=== PATIENT | male | born 1930 | race Caucasian/White ===

== ENCOUNTER 2016-07-19 08:43 | Outpatient (CLI) | payer OTHER ==
[2016-04-23 14:05] VITALS: BMI 17.6
[~2016-07-19 08:43] MED LIST: CARB1TAB10 PO; CLOP75TA2 PO; EZET10TA PO; FENO145T PO; FENO48TA2 PO; HCTZ PO; HYDR12.55 PO; LISI-219 PO; LISI-600 PO; LISI40TA4 PO; METO50TA7 PO; ONDA4TAB5 PO; POTA99TA14 PO; PRO40 PO; ROSU20TA PO; ROSU40TA PO; TOPXL100 PO; TRAM50TA92 PO
== END 2016-07-19 18:45 | disposition home or self-care (01) ==
LOC: SUS 08:43
PROVIDERS: ATTEND Internal Medicine
DX: N18.4 Chronic kidney disease, stage 4 (severe) (principal); N28.1 Cyst of kidney, acquired
CPT/HCPCS: 76770

== ENCOUNTER 2016-07-20 12:48 | Emergency (ER) | payer OTHER ==
[2016-04-23 14:05] VITALS: Ht 177.8 cm; Wt 54.4 kg
[~2016-07-20] VITALS: Ht 177.8 cm; Wt 54.4 kg
[2016-07-20 12:54] VITALS: BP 121/56; PULSE 60; RESP 18; TEMP 97.8; O2SAT 100
--- NOTE | 2016-07-20 12:54 | NUR ---
Pt placed to ER bed 07. Report given to ANGELITA Perez.
--- NOTE | 2016-07-20 12:54 | NUR ---
Annie martins in EDM - 07/20/16 at 1301 by CARLOS Pt placed to [facility] . Report given to ANGELITA Vargas.
--- NOTE | 2016-07-20 12:56 | NUR ---
ER at bedside examining patient.
--- NOTE | 2016-07-20 13:00 | NUR ---
Pt [id number] c/o L Elbow,hand and head pain s/p mech fall c/o syncope. Pt ambulates /slow steady gait. Wounds dressed prior to evaluation.
[2016-07-20] MEDS ORDERED: DIPH-TET-PERTUS Vaccine 0.5 ML VIAL (ADACEL) I.M. ONE (13:30)
--- NOTE | 2016-07-20 13:50 | NUR ---
Pt receiveing wound care.
--- NOTE | 2016-07-20 15:00 | NUR ---
Wound care completed. Pt tolerated well.Rad dept at bedside for XRAY
--- NOTE | 2016-07-20 16:00 | NUR ---
Per , pt decline Head CT for r/o bleed.Risk and benefits explained at bedside. Pt to be D/C'd
[2016-07-20 17:00] VITALS: BP 120/58; PULSE 65; RESP 18; TEMP 97.8; O2SAT 100
--- NOTE | 2016-07-20 17:00 | NUR ---
Patient given written and verbal discharge instructions and verbalizes understanding. ER MD discussed with patient the results and treatment provided. Given copies of tests performed in ER. Patient in stable condition. ID arm band removed. Rx of mupirocin given. Patient educated on pain management and to follow up with PMD. Pain Scale 2. Opportunity for questions provided and answered.
== END 2016-07-20 17:00 | disposition home or self-care (01) ==
LOC: SED 12:48
DX: S41.112A Laceration without foreign body of left upper arm, initial encounter (principal); S60.512A Abrasion of left hand, initial encounter; S50.312A Abrasion of left elbow, initial encounter; I10 Essential (primary) hypertension; M54.5 Low back pain; E78.00 Pure hypercholesterolemia, unspecified; Z85.46 Personal history of malignant neoplasm of prostate; Z88.5 Allergy status to narcotic agent; Z85.828 Personal history of other malignant neoplasm of skin; Z95.0 Presence of cardiac pacemaker; Z90.49 Acquired absence of other specified parts of digestive tract; W18.30XA Fall on same level, unspecified, initial encounter; Y93.89 Activity, other specified; Y99.8 Other external cause status; Y92.000 Kitchen of unspecified non-institutional (private) residence as the place of occurrence of the external cause
CPT/HCPCS: 72100-TC; 90715; 99284

== ENCOUNTER 2016-09-26 13:15 | Emergency (ER) | payer OTHER ==
[~2016-09-26] VITALS: Ht 177.8 cm; Wt 54.4 kg
[~2016-09-26 13:15] MED LIST changes: -EZET10TA PO; -FENO145T PO; -FENO48TA2 PO; -HCTZ PO; -HYDR12.55 PO; -LISI-600 PO; -LISI40TA4 PO; -ONDA4TAB5 PO; -POTA99TA14 PO; -ROSU40TA PO; -TOPXL100 PO; -TRAM50TA92 PO
[2016-09-26] MEDS ORDERED: BACITRACIN 1 GM OINT TP ONE (14:15)
[2016-09-26 14:27] VITALS: BP_SYST 152
[2016-09-26 14:35] LABS: CALCIUM 9.6 mg/dL (8.4-11.0); CHLORIDE 112 mmol/L (98-107); CREATININE 2.65 mg/dL (0.55-1.30); GLUCOSE 129 mg/dL (70-99); POTASSIUM 4.1 mmol/L (3.5-5.1); SODIUM SERUM 143 mmol/L (136-145); UREA NITROGEN, BLOOD 30 mg/dL (8-21)
[2016-09-26 14:41] LABS: ANION GAP < 3 (5-15)
[2016-09-26 14:42] LABS: INR 1.1 (0.80-1.20); PROTHROMBIN TIME 11.9 SECS (9.5-12.5)
[2016-09-26 14:43] LABS: EOSINOPHILS # (AUTO) 0.2 K/uL (0.0-0.4); MEAN CORPUSCULAR HEMOGLOBIN 30 pg (27-31); MONOCYTES # (AUTO) 0.6 K/uL (0.0-1.0); NEUTROPHILS # (AUTO) 4.2 K/uL (1.8-7.7); RED CELL DISTRIBUTION WIDTH 13.4 % (9.0-15.0)
[2016-09-26 14:47] LABS: BASOPHILS % (AUTO) 0.8 % (0.0-2.0); EOSINOPHILS % (AUTO) 3.3 % (0.0-4.0); HEMATOCRIT 35.9 % (36-54); HEMOGLOBIN 11.7 g/dL (14.0-18.0); LYMPHOCYTES # (AUTO) 0.6 K/uL (1.0-5.5); LYMPHOCYTES % (AUTO) 11.6 % (20.5-51.5); MEAN CORPUSCULAR HGB CONC 33 % (32-36); MEAN CORPUSCULAR VOLUME 92 fL (79.0-98.0); MONOCYTES % (AUTO) 10.5 % (1.7-9.3); NEUTROPHILS % (AUTO) 73.8 % (40.0-70.0); PLATELET COUNT (AUTO) 112 K/uL (130-430); RED BLOOD CELL COUNT(AUTO) 3.89 MIL/uL (4.2-6.2); WHITE BLOOD COUNT (AUTO) 5.6 K/uL (4.8-10.8)
[2016-09-26 14:49] LABS: ALANINE AMINOTRANSFERASE 37 U/L (12-78); ALBUMIN 4.2 g/dL (3.4-4.8); ASPARTATE AMINOTRANSFERASE 23 U/L (10-37); TOTAL BILIRUBIN 0.4 mg/dL (0.0-1.0); TOTAL PROTEIN, SERUM 8.1 g/dL (6.4-8.3)
[2016-09-26 14:50] LABS: CREATINE KINASE, TOTAL 67 U/L (39-308)
[2016-09-26 16:45] VITALS: BP_SYST 156
[2016-09-27] MEDS ORDERED: METO-308 PO (21:33)
[2016-09-27] MEDS ORDERED: ASPI-1063 PO (21:35)
[2016-09-27] MEDS ORDERED: ROSU10TA PO (21:35)
[2016-09-27] MEDS ORDERED: AMAN100C16 PO (21:36)
[2016-09-27] MEDS ORDERED: DOXY-168 PO (21:37)
[2016-09-27] MEDS ORDERED: SUCR1TAB78 PO (21:38)
== END 2016-09-26 16:45 | disposition home or self-care (01) ==
LOC: SED 13:15
DX: S51.012A Laceration without foreign body of left elbow, initial encounter (principal); S60.211A Contusion of right wrist, initial encounter; E78.00 Pure hypercholesterolemia, unspecified; Z86.79 Personal history of other diseases of the circulatory system; Z96.89 Presence of other specified functional implants; Z88.5 Allergy status to narcotic agent; W19.XXXA Unspecified fall, initial encounter; Y93.89 Activity, other specified; Y92.89 Other specified places as the place of occurrence of the external cause; Y99.8 Other external cause status; I12.9 Hypertensive chronic kidney disease with stage 1 through stage 4 chronic kidney disease, or unspecified chronic kidney disease
CPT/HCPCS: 36415; 71010; 80053; 82550-TC; 83880; 84484; 85025; 85610-TC; 85730-TC; 93005; 99285

== ENCOUNTER 2016-09-27 18:14 | Inpatient (IN) | payer OTHER ==
[~2016-09-27] VITALS: Ht 177.8 cm; Wt 54.4 kg
[2016-09-27 18:14] VITALS: BP 120/83; PULSE 98; RESP 19; TEMP 98.2; O2SAT 99
[~2016-09-27 18:14] MED LIST changes: +EZET10TA PO; +FENO145T PO; +FENO48TA2 PO; +HCTZ PO; +HYDR12.55 PO; +LISI-600 PO; +LISI40TA4 PO; +ONDA4TAB5 PO; +POTA99TA14 PO; +ROSU40TA PO; +TOPXL100 PO; +TRAM50TA92 PO
[2016-09-27] MEDS ORDERED: HYDROmorphone 1 MG INJ. 1 MG/ML AMPUL IVP ONE (19:00)
[2016-09-27] MEDS ORDERED: ONDANSETRON HCL 4 MG/2 ML VIAL IVP ONE (19:00)
[2016-09-27] MEDS ORDERED: DIPHENHYDRAMINE INJ 50 MG/ML VIAL IVP ONE (19:00)
[2016-09-27 19:35] LABS: ANION GAP 5 (5-15); CALCIUM 9.2 mg/dL (8.4-11.0); CHLORIDE 110 mmol/L (98-107); CREATININE 2.52 mg/dL (0.55-1.30); GLUCOSE 191 mg/dL (70-99); POTASSIUM 3.9 mmol/L (3.5-5.1); SODIUM SERUM 143 mmol/L (136-145); UREA NITROGEN, BLOOD 30 mg/dL (8-21)
[2016-09-27 19:37] LABS: INR 1.1 (0.80-1.20); PROTHROMBIN TIME 12.3 SECS (9.5-12.5)
[2016-09-27 19:39] LABS: ALANINE AMINOTRANSFERASE 28 U/L (12-78); ALBUMIN 3.7 g/dL (3.4-4.8); ASPARTATE AMINOTRANSFERASE 23 U/L (10-37); BASOPHILS % (AUTO) 0.4 % (0.0-2.0); EOSINOPHILS # (AUTO) 0.2 K/uL (0.0-0.4); EOSINOPHILS % (AUTO) 2.4 % (0.0-4.0); HEMATOCRIT 31.6 % (36-54); HEMOGLOBIN 10.5 g/dL (14.0-18.0); LIPASE 228 U/L (73-393); LYMPHOCYTES # (AUTO) 0.6 K/uL (1.0-5.5); LYMPHOCYTES % (AUTO) 9.4 % (20.5-51.5); MEAN CORPUSCULAR HEMOGLOBIN 30 pg (27-31); MEAN CORPUSCULAR HGB CONC 33 % (32-36); MEAN CORPUSCULAR VOLUME 92 fL (79.0-98.0); MONOCYTES # (AUTO) 0.4 K/uL (0.0-1.0); MONOCYTES % (AUTO) 6.8 % (1.7-9.3); NEUTROPHILS # (AUTO) 5.2 K/uL (1.8-7.7); PLATELET COUNT (AUTO) 100 K/uL (130-430); RED BLOOD CELL COUNT(AUTO) 3.46 MIL/uL (4.2-6.2); RED CELL DISTRIBUTION WIDTH 13.4 % (9.0-15.0); TOTAL BILIRUBIN 0.6 mg/dL (0.0-1.0); TOTAL PROTEIN, SERUM 6.6 g/dL (6.4-8.3); WHITE BLOOD COUNT (AUTO) 6.4 K/uL (4.8-10.8)
[2016-09-27 20:46] LABS: BLOOD, URINE 2+ (NEGATIVE); COLOR,URINE YELLOW (YELLOW); GLUCOSE,URINE NEGATIVE (NEGATIVE); KETONES,URINE TRACE (NEGATIVE); LEUKOCYTE ESTERASE ,URINE NEGATIVE (NEGATIVE); NITRITE, URINE NEGATIVE (NEGATIVE); PROTEIN URINE 2+ (NEGATIVE); UROBILINOGEN,URINE 0.2 (0.2-1.0)
[2016-09-27 20:54] LABS: BILIRUBIN,URINE NEGATIVE (NEGATIVE); CLARITY/URINE HAZY (CLEAR)
[2016-09-27 20:55] LABS: BACTERIA,URINE FEW /HPF (None Seen); MUCUS,URINE None Seen /LPF (None Seen); RBC,URINE 0-3 /HPF (0-3); URINE AMORPHOUS URATE 1+ /HPF (None Seen); WBC,URINE 0-3 /HPF (0-3)
[2016-09-27] MEDS ORDERED: METO-308 PO (21:33)
[2016-09-27] MEDS ORDERED: ASPI-1063 PO (21:35)
[2016-09-27] MEDS ORDERED: ROSU10TA PO (21:35)
[2016-09-27] MEDS ORDERED: AMAN100C16 PO (21:36)
[2016-09-27] MEDS ORDERED: DOXY-168 PO (21:37)
[2016-09-27] MEDS ORDERED: SUCR1TAB78 PO (21:38)
[2016-09-27] MEDS ORDERED: PIPERACILLIN/TAZO 3.375 GM in NS 50 ML IV ONE (21:45)
[2016-09-27] MEDS ORDERED: KETOROLAC TROMETHAMINE 30 MG VIAL IVP ONE (21:45)
[2016-09-27] MEDS ORDERED: PIPERACILLIN/TAZOBACTAM 3.375 GM/VIAL (ZOSYN) IV ONE (22:28)
[2016-09-27] MEDS: POTASSIUM CHLORIDE 10 MEQ in 0.45% NACL 1,000 ML IV SCH (23:34)
[2016-09-27] MEDS ORDERED: PROCHLORPERAZINE EDISYLATE 10 MG/2 ML VIAL IVP PRN (23:45)
[2016-09-27] MEDS ORDERED: ACETAMINOPHEN 325 MG TABLET PO PRN (23:45)
[2016-09-28] VITALS (9 sets, daily range): BP systolic 126–136; BP diastolic 54–68; PULSE 60–80; RESP 16–19; TEMP 97.5–99.1; O2SAT 92–99; Ht 177.8 cm; Wt 54.4 kg
[2016-09-28] MEDS: ALBUTEROL SULFATE 0.083% 2.5 MG/3 ML VIAL.NEB INH SCH ×4 (01:14→20:07)
[2016-09-28] MEDS ORDERED: KCL 20 mEq in 100 mL (PREMIX) 100 ML IV ONE (01:25)
[2016-09-28] MEDS: POTASSIUM CHLORIDE 10 MEQ in 0.45% NACL 1,000 ML IV SCH ×2 (02:04→21:10)
[2016-09-28] MEDS ORDERED: PIPERACILLIN/TAZOBACTAM 2.25 GM VIAL IV ONE (02:11)
[2016-09-28] MEDS: PIPERACILLIN/TAZOBACTAM 2.25 GM in NS 50 ML IV SCH ×3 (06:24→21:11)
[2016-09-28] MEDS ORDERED: ROSUVASTATIN CALCIUM 5 MG/TAB (CRESTOR) PO SCH (09:00)
[2016-09-28] MEDS ORDERED: METOPROLOL SUCCINATE 100 MG PO SCH (09:00)
[2016-09-28] MEDS: AMANTADINE HCL 100 MG CAP PO SCH ×2 (09:03→21:10)
[2016-09-28] MEDS: LACTOBACILLUS RHAMNOSUS GG 1 CAP CAPSULE PO SCH ×2 (09:03→21:10)
[2016-09-28] MEDS: ATORVASTATIN 20 MG TABLET PO SCH (09:03)
[2016-09-28] MEDS: METOPROLOL SUCCINATE 50 MG TAB.SR.24H (TOPROL XL) PO SCH (09:03)
[2016-09-28] MEDS: CLOPIDOGREL BISULFATE 75 MG TABLET PO SCH (09:03)
[2016-09-28] MEDS: ASPIRIN 81 MG TABLET(ECOTRIN) PO SCH (09:03)
[2016-09-28] MEDS: SUCRALFATE 1 GM TABLET PO SCH ×3 (09:03→21:10)
[2016-09-28] MEDS: traMADol HCL HCL 50 MG TABLET (ULTRAM) PO PRN (21:11)
[2016-09-29] MEDS: ALBUTEROL SULFATE 0.083% 2.5 MG/3 ML VIAL.NEB INH SCH ×4 (01:20→19:35)
[2016-09-29 03:58] VITALS: BP 142/65; PULSE 70; RESP 19; TEMP 98.2; O2SAT 92
[2016-09-29] MEDS: PIPERACILLIN/TAZOBACTAM 2.25 GM in NS 50 ML IV SCH ×3 (06:32→22:23)
[2016-09-29 07:17] LABS: BASOPHILS % (AUTO) 0.5 % (0.0-2.0); EOSINOPHILS # (AUTO) 0.1 K/uL (0.0-0.4); EOSINOPHILS % (AUTO) 1.2 % (0.0-4.0); HEMATOCRIT 23.2 % (36-54); HEMOGLOBIN 7.9 g/dL (14.0-18.0); LYMPHOCYTES # (AUTO) 0.5 K/uL (1.0-5.5); LYMPHOCYTES % (AUTO) 7.3 % (20.5-51.5); MEAN CORPUSCULAR HEMOGLOBIN 31 pg (27-31); MEAN CORPUSCULAR HGB CONC 34 % (32-36); MEAN CORPUSCULAR VOLUME 92 fL (79.0-98.0); MONOCYTES # (AUTO) 0.7 K/uL (0.0-1.0); MONOCYTES % (AUTO) 10.9 % (1.7-9.3); NEUTROPHILS # (AUTO) 5.3 K/uL (1.8-7.7); NEUTROPHILS % (AUTO) 80.1 % (40.0-70.0); PLATELET COUNT (AUTO) 61 K/uL (130-430); RED BLOOD CELL COUNT(AUTO) 2.52 MIL/uL (4.2-6.2); RED CELL DISTRIBUTION WIDTH 13.8 % (9.0-15.0); WHITE BLOOD COUNT (AUTO) 6.6 K/uL (4.8-10.8)
[2016-09-29 07:38] LABS: ANION GAP 10 (5-15); CALCIUM 8.4 mg/dL (8.4-11.0); CHLORIDE 107 mmol/L (98-107); CREATININE 3.16 mg/dL (0.55-1.30); GLUCOSE 108 mg/dL (70-99); POTASSIUM 4.6 mmol/L (3.5-5.1); SODIUM SERUM 142 mmol/L (136-145); UREA NITROGEN, BLOOD 37 mg/dL (8-21)
[2016-09-29 08:00] VITALS: BP 132/61; PULSE 68; RESP 18; TEMP 98.3; O2SAT 94
[2016-09-29] MEDS: ATORVASTATIN 20 MG TABLET PO SCH (08:32)
[2016-09-29] MEDS: LACTOBACILLUS RHAMNOSUS GG 1 CAP CAPSULE PO SCH ×2 (08:33→22:23)
[2016-09-29] MEDS: PANTOPRAZOLE SODIUM 40 MG TAB PO PRN (08:33)
[2016-09-29] MEDS: CLOPIDOGREL BISULFATE 75 MG TABLET PO SCH (08:33)
[2016-09-29] MEDS: AMANTADINE HCL 100 MG CAP PO SCH ×2 (08:33→22:23)
[2016-09-29] MEDS: SUCRALFATE 1 GM TABLET PO SCH ×3 (08:33→22:22)
[2016-09-29] MEDS: ASPIRIN 81 MG TABLET(ECOTRIN) PO SCH (08:33)
[2016-09-29] MEDS: METOPROLOL SUCCINATE 50 MG TAB.SR.24H (TOPROL XL) PO SCH (08:34)
[2016-09-29 12:00] VITALS: BP 121/73; PULSE 68; RESP 18; TEMP 98.9
[2016-09-29 15:29] VITALS: BP 131/63; PULSE 68; RESP 19; TEMP 97.1; O2SAT 93
[2016-09-29] MEDS: traMADol HCL HCL 50 MG TABLET (ULTRAM) PO PRN (16:53)
[2016-09-29 20:08] LABS: BILIRUBIN,URINE NEGATIVE (NEGATIVE); BLOOD, URINE 2+ (NEGATIVE); CLARITY/URINE SL HAZY (CLEAR); COLOR,URINE YELLOW (YELLOW); GLUCOSE,URINE NEGATIVE (NEGATIVE); KETONES,URINE TRACE (NEGATIVE); LEUKOCYTE ESTERASE ,URINE NEGATIVE (NEGATIVE); NITRITE, URINE NEGATIVE (NEGATIVE); PH,URINE 5.5 (5.0-8.0); PROTEIN URINE 1+ (NEGATIVE); UROBILINOGEN,URINE 0.2 (0.2-1.0)
[2016-09-29 20:25] VITALS: BP 134/73; PULSE 72; RESP 18; TEMP 97.5; O2SAT 93
[2016-09-29 20:26] LABS: BACTERIA,URINE FEW /HPF (None Seen); RBC,URINE 0-3 /HPF (0-3); URINE AMORPHOUS URATE 2+ /HPF (None Seen); WBC,URINE 0-3 /HPF (0-3)
[2016-09-29] MEDS: POTASSIUM CHLORIDE 10 MEQ in 0.45% NACL 1,000 ML IV SCH (22:24)
[2016-09-30] MEDS: ALBUTEROL SULFATE 0.083% 2.5 MG/3 ML VIAL.NEB INH SCH ×4 (00:01→19:45)
[2016-09-30 00:20] VITALS: BP 148/74; PULSE 79; RESP 17; TEMP 99.3; O2SAT 92
[2016-09-30 05:21] VITALS: BP 135/66; PULSE 72; RESP 15; TEMP 98.8; O2SAT 93
[2016-09-30] MEDS: PIPERACILLIN/TAZOBACTAM 2.25 GM in NS 50 ML IV SCH ×3 (06:44→21:53)
[2016-09-30 07:06] LABS: HEMATOCRIT 24.9 % (36-54); HEMOGLOBIN 8.2 g/dL (14.0-18.0); MEAN CORPUSCULAR HEMOGLOBIN 30 pg (27-31); MEAN CORPUSCULAR HGB CONC 33 % (32-36); MEAN CORPUSCULAR VOLUME 91 fL (79.0-98.0); PLATELET COUNT (AUTO) 82 K/uL (130-430); RED BLOOD CELL COUNT(AUTO) 2.73 MIL/uL (4.2-6.2); RED CELL DISTRIBUTION WIDTH 13.6 % (9.0-15.0)
[2016-09-30 07:12] LABS: ANION GAP 11 (5-15); CALCIUM 8.9 mg/dL (8.4-11.0); CHLORIDE 104 mmol/L (98-107); CREATININE 3.02 mg/dL (0.55-1.30); GLUCOSE 100 mg/dL (70-99); POTASSIUM 4.5 mmol/L (3.5-5.1); SODIUM SERUM 138 mmol/L (136-145); UREA NITROGEN, BLOOD 42 mg/dL (8-21)
[2016-09-30 07:25] LABS: WHITE BLOOD COUNT (AUTO) 7.3 K/uL (4.8-10.8)
[2016-09-30 08:00] VITALS: BP 111/63; PULSE 77; RESP 18; TEMP 98.9; O2SAT 93
[2016-09-30 08:06] LABS: ATYPICAL LYMPHOCYTES % 0 % (0-0); BAND % (MANUAL) 0 % (0-6); BASOPHILS % (MANUAL) 0 % (0-2); EOSINOPHILS % (MANUAL) 0 % (0-7); LYMPHOCYTES % (MANUAL) 6 % (20-46); MONOCYTES % (MANUAL) 9 % (0-11)
[2016-09-30] MEDS ORDERED: CEFAZOLIN 1 GM IVPB PREMIX 50 ML IV ONE (08:30)
[2016-09-30] MEDS: SUCRALFATE 1 GM TABLET PO SCH ×3 (09:46→21:53)
[2016-09-30] MEDS: PANTOPRAZOLE SODIUM 40 MG TAB PO PRN (09:46)
[2016-09-30] MEDS: AMANTADINE HCL 100 MG CAP PO SCH ×2 (09:46→21:53)
[2016-09-30] MEDS: ATORVASTATIN 20 MG TABLET PO SCH (09:46)
[2016-09-30] MEDS: LACTOBACILLUS RHAMNOSUS GG 1 CAP CAPSULE PO SCH ×2 (09:46→21:51)
[2016-09-30] MEDS: METOPROLOL SUCCINATE 50 MG TAB.SR.24H (TOPROL XL) PO SCH (09:47)
[2016-09-30] MEDS: ASPIRIN 81 MG TABLET(ECOTRIN) PO SCH (09:47)
[2016-09-30 12:12] VITALS: BP 141/69; PULSE 69; RESP 19; TEMP 97.1; O2SAT 95
[2016-09-30] MEDS: POTASSIUM CHLORIDE 10 MEQ in 0.45% NACL 1,000 ML IV SCH (14:46)
[2016-09-30 16:18] VITALS: BP 140/65; PULSE 73; RESP 18; TEMP 98.8; O2SAT 98
[2016-09-30 20:10] VITALS: BP 142/71; PULSE 87; RESP 16; TEMP 99.1; O2SAT 93
[2016-10-01] VITALS (7 sets, daily range): BP systolic 115–131; BP diastolic 54–82; PULSE 62–82; RESP 16–22; TEMP 97.4–99.9; O2SAT 88–98
[2016-10-01] MEDS: ALBUTEROL SULFATE 0.083% 2.5 MG/3 ML VIAL.NEB INH SCH ×4 (01:02→19:43)
[2016-10-01 05:13] LABS: FOLATE (FOLIC ACID) 11.4 ng/mL (>3.0)
[2016-10-01] MEDS: PIPERACILLIN/TAZOBACTAM 2.25 GM in NS 50 ML IV SCH ×2 (05:29→13:46)
[2016-10-01 06:45] LABS: BASOPHILS % (AUTO) 0.5 % (0.0-2.0); EOSINOPHILS % (AUTO) 0.4 % (0.0-4.0); HEMATOCRIT 23.4 % (36-54); HEMOGLOBIN 7.7 g/dL (14.0-18.0); LYMPHOCYTES # (AUTO) 0.4 K/uL (1.0-5.5); LYMPHOCYTES % (AUTO) 5.9 % (20.5-51.5); MEAN CORPUSCULAR HEMOGLOBIN 30 pg (27-31); MEAN CORPUSCULAR HGB CONC 33 % (32-36); MEAN CORPUSCULAR VOLUME 92 fL (79.0-98.0); MONOCYTES # (AUTO) 0.7 K/uL (0.0-1.0); MONOCYTES % (AUTO) 11.3 % (1.7-9.3); NEUTROPHILS # (AUTO) 5.4 K/uL (1.8-7.7); NEUTROPHILS % (AUTO) 81.9 % (40.0-70.0); RED BLOOD CELL COUNT(AUTO) 2.53 MIL/uL (4.2-6.2); RED CELL DISTRIBUTION WIDTH 13.6 % (9.0-15.0); WHITE BLOOD COUNT (AUTO) 6.5 K/uL (4.8-10.8)
[2016-10-01 06:58] LABS: ALANINE AMINOTRANSFERASE 44 U/L (12-78); ALBUMIN 2.9 g/dL (3.4-4.8); ANION GAP 11 (5-15); ASPARTATE AMINOTRANSFERASE 66 U/L (10-37); CALCIUM 8.5 mg/dL (8.4-11.0); CHLORIDE 107 mmol/L (98-107); CREATININE 3.09 mg/dL (0.55-1.30); GLUCOSE 89 mg/dL (70-99); SODIUM SERUM 139 mmol/L (136-145); TOTAL BILIRUBIN 1.3 mg/dL (0.0-1.0); TOTAL PROTEIN, SERUM 5.7 g/dL (6.4-8.3); UREA NITROGEN, BLOOD 53 mg/dL (8-21)
[2016-10-01 07:00] LABS: INR 1.2 (0.80-1.20); PROTHROMBIN TIME 13.3 SECS (9.5-12.5)
[2016-10-01 07:49] LABS: PLATELET COUNT (AUTO) 92 K/uL (130-430)
[2016-10-01] MEDS ORDERED: CEFAZOLIN 1 GM IVPB PREMIX 50 ML IV ONE (08:45)
[2016-10-01] MEDS ORDERED: COMMUNICATION ORDER XX ONE (08:45)
[2016-10-01] MEDS: AMANTADINE HCL 100 MG CAP PO SCH ×2 (09:00→21:52)
[2016-10-01] MEDS: METOPROLOL SUCCINATE 50 MG TAB.SR.24H (TOPROL XL) PO SCH (09:00)
[2016-10-01] MEDS: ASPIRIN 81 MG TABLET(ECOTRIN) PO SCH (09:00)
[2016-10-01] MEDS: SUCRALFATE 1 GM TABLET PO SCH ×3 (09:00→21:52)
[2016-10-01] MEDS: ATORVASTATIN 20 MG TABLET PO SCH (09:00)
[2016-10-01] MEDS: LACTOBACILLUS RHAMNOSUS GG 1 CAP CAPSULE PO SCH ×2 (09:00→21:52)
[2016-10-01] MEDS ORDERED: FUROSEMIDE 20 MG/2 ML VIAL IVP ONE (11:15)
[2016-10-01] MEDS ORDERED: ACETAMINOPHEN 325 MG TABLET PO ONE (13:45)
[2016-10-01] MEDS: POTASSIUM CHLORIDE 10 MEQ in 0.45% NACL 1,000 ML IV SCH (13:46)
[2016-10-01] MEDS ORDERED: fentaNYL CITRATE/PF 100 MCG/2 ML AMP ONE (13:49)
[2016-10-01] MEDS ORDERED: MIDAZOLAM HCL 5 MG/5 ML VIAL ONE (13:49)
[2016-10-01] MEDS: levETIRAcetam 500 MG in NS 100 ML IV SCH ×2 (16:29→22:51)
[2016-10-01] MEDS ORDERED: EPOETIN ALFA 10,000 UNITS/ML VIAL SUBCUT ONE (17:00)
[2016-10-01] MEDS ORDERED: FLUCONAZOLE 200 mg/ NS 100 ML IV ONE (18:00)
[2016-10-02] MEDS: PIPERACILLIN/TAZOBACTAM 2.25 GM in NS 50 ML IV SCH ×4 (00:10→21:21)
[2016-10-02 00:18] VITALS: BP 126/70; PULSE 101; RESP 18; TEMP 97.8; O2SAT 95
[2016-10-02] MEDS: POTASSIUM CHLORIDE 10 MEQ in 0.45% NACL 1,000 ML IV SCH (00:30)
[2016-10-02 04:27] VITALS: BP 143/66; PULSE 79; RESP 18; TEMP 98.5; O2SAT 95
[2016-10-02] MEDS ORDERED: fentaNYL CITRATE/PF 100 MCG/2 ML AMP ONE (06:30)
[2016-10-02] MEDS ORDERED: MIDAZOLAM HCL 5 MG/5 ML VIAL ONE (06:31)
[2016-10-02] MEDS ORDERED: SIMETHICONE 40 MG/0.6 ML ML ONE (06:31)
[2016-10-02 07:18] LABS: BASOPHILS % (AUTO) 0.2 % (0.0-2.0); EOSINOPHILS # (AUTO) 0.1 K/uL (0.0-0.4); MONOCYTES # (AUTO) 0.6 K/uL (0.0-1.0); WHITE BLOOD COUNT (AUTO) 6.1 K/uL (4.8-10.8)
[2016-10-02] MEDS: ALBUTEROL SULFATE 0.083% 2.5 MG/3 ML VIAL.NEB INH SCH ×4 (07:19→19:00)
[2016-10-02 07:27] LABS: INR 1.1 (0.80-1.20); PROTHROMBIN TIME 12.3 SECS (9.5-12.5)
[2016-10-02 07:30] LABS: HEMATOCRIT 32.2 % (36-54); HEMOGLOBIN 10.4 g/dL (14.0-18.0); LYMPHOCYTES # (AUTO) 0.3 K/uL (1.0-5.5); LYMPHOCYTES % (AUTO) 4.4 % (20.5-51.5); MEAN CORPUSCULAR HEMOGLOBIN 30 pg (27-31); MEAN CORPUSCULAR HGB CONC 32 % (32-36); MEAN CORPUSCULAR VOLUME 91 fL (79.0-98.0); MONOCYTES % (AUTO) 9.7 % (1.7-9.3); NEUTROPHILS # (AUTO) 5.1 K/uL (1.8-7.7); NEUTROPHILS % (AUTO) 83.7 % (40.0-70.0); PLATELET COUNT (AUTO) 81 K/uL (130-430); RED BLOOD CELL COUNT(AUTO) 3.53 MIL/uL (4.2-6.2); RED CELL DISTRIBUTION WIDTH 13.6 % (9.0-15.0)
[2016-10-02 07:33] LABS: ALANINE AMINOTRANSFERASE 54 U/L (12-78); ALBUMIN 2.8 g/dL (3.4-4.8); ANION GAP 10 (5-15); ASPARTATE AMINOTRANSFERASE 64 U/L (10-37); CALCIUM 8.5 mg/dL (8.4-11.0); CHLORIDE 108 mmol/L (98-107); CREATININE 2.53 mg/dL (0.55-1.30); GLUCOSE 104 mg/dL (70-99); POTASSIUM 3.5 mmol/L (3.5-5.1); SODIUM SERUM 140 mmol/L (136-145); TOTAL BILIRUBIN 1.8 mg/dL (0.0-1.0); TOTAL PROTEIN, SERUM 5.8 g/dL (6.4-8.3); UREA NITROGEN, BLOOD 50 mg/dL (8-21)
[2016-10-02] MEDS: ATORVASTATIN 20 MG TABLET PO SCH (09:00)
[2016-10-02] MEDS: LACTOBACILLUS RHAMNOSUS GG 1 CAP CAPSULE PO SCH ×2 (09:00→21:20)
[2016-10-02] MEDS: METOPROLOL SUCCINATE 50 MG TAB.SR.24H (TOPROL XL) PO SCH (09:00)
[2016-10-02] MEDS: AMANTADINE HCL 100 MG CAP PO SCH ×2 (09:00→21:20)
[2016-10-02] MEDS: SUCRALFATE 1 GM TABLET PO SCH ×3 (09:00→21:20)
[2016-10-02 09:24] VITALS: BP 139/67; PULSE 78; RESP 19; TEMP 97.7; O2SAT 92
[2016-10-02] MEDS: levETIRAcetam 500 MG in NS 100 ML IV SCH ×2 (09:30→21:21)
[2016-10-02 12:12] VITALS: BP 137/70; PULSE 82; RESP 19; TEMP 97.6; O2SAT 95
[2016-10-02 15:26] VITALS: BP 144/78; PULSE 63; RESP 19; TEMP 97.3; O2SAT 93
[2016-10-02 20:00] VITALS: BP 139/99; PULSE 85; RESP 17; TEMP 98.5; O2SAT 98
[2016-10-03 00:46] VITALS: BP 138/71; PULSE 78; RESP 20; TEMP 98.4; O2SAT 97
[2016-10-03] MEDS: ALBUTEROL SULFATE 0.083% 2.5 MG/3 ML VIAL.NEB INH SCH ×4 (01:00→20:53)
[2016-10-03 04:07] VITALS: BP 105/76; PULSE 77; RESP 18; TEMP 97.9; O2SAT 99
[2016-10-03] MEDS: PIPERACILLIN/TAZOBACTAM 2.25 GM in NS 50 ML IV SCH ×2 (05:24→13:22)
[2016-10-03] MEDS: POTASSIUM CHLORIDE 10 MEQ in 0.45% NACL 1,000 ML IV SCH (05:24)
[2016-10-03 07:22] LABS: BASOPHILS % (AUTO) 0.2 % (0.0-2.0); EOSINOPHILS # (AUTO) 0.2 K/uL (0.0-0.4); HEMATOCRIT 32.8 % (36-54); LYMPHOCYTES # (AUTO) 0.2 K/uL (1.0-5.5); LYMPHOCYTES % (AUTO) 4.1 % (20.5-51.5); MEAN CORPUSCULAR HEMOGLOBIN 30 pg (27-31); MEAN CORPUSCULAR HGB CONC 34 % (32-36); MEAN CORPUSCULAR VOLUME 90 fL (79.0-98.0); MONOCYTES # (AUTO) 0.5 K/uL (0.0-1.0); MONOCYTES % (AUTO) 9.2 % (1.7-9.3); NEUTROPHILS # (AUTO) 4.8 K/uL (1.8-7.7); NEUTROPHILS % (AUTO) 83.5 % (40.0-70.0); PLATELET COUNT (AUTO) 83 K/uL (130-430); RED BLOOD CELL COUNT(AUTO) 3.64 MIL/uL (4.2-6.2); RED CELL DISTRIBUTION WIDTH 13.8 % (9.0-15.0); WHITE BLOOD COUNT (AUTO) 5.7 K/uL (4.8-10.8)
[2016-10-03 08:00] VITALS: BP 145/72; PULSE 76; RESP 16; TEMP 97.6; O2SAT 98
[2016-10-03 08:13] LABS: ALANINE AMINOTRANSFERASE 90 U/L (12-78); ALBUMIN 2.6 g/dL (3.4-4.8); ANION GAP 7 (5-15); ASPARTATE AMINOTRANSFERASE 92 U/L (10-37); CALCIUM 8.5 mg/dL (8.4-11.0); CHLORIDE 109 mmol/L (98-107); CREATININE 1.95 mg/dL (0.55-1.30); GLUCOSE 152 mg/dL (70-99); POTASSIUM 3.3 mmol/L (3.5-5.1); SODIUM SERUM 142 mmol/L (136-145); TOTAL BILIRUBIN 1.6 mg/dL (0.0-1.0); TOTAL PROTEIN, SERUM 5.6 g/dL (6.4-8.3); UREA NITROGEN, BLOOD 38 mg/dL (8-21)
[2016-10-03] MEDS: SUCRALFATE 1 GM TABLET PO SCH ×2 (08:31→14:27)
[2016-10-03] MEDS: LACTOBACILLUS RHAMNOSUS GG 1 CAP CAPSULE PO SCH (08:31)
[2016-10-03] MEDS: AMANTADINE HCL 100 MG CAP PO SCH (08:31)
[2016-10-03] MEDS: levETIRAcetam 500 MG in NS 100 ML IV SCH (08:31)
[2016-10-03] MEDS: ATORVASTATIN 20 MG TABLET PO SCH (08:31)
[2016-10-03] MEDS: METOPROLOL SUCCINATE 50 MG TAB.SR.24H (TOPROL XL) PO SCH (08:32)
[2016-10-03] MEDS ORDERED: POTASSIUM CHLORIDE 20 MEQ/PKT PACKET PO ONE ×2 (11:00→15:45)
[2016-10-03 12:56] VITALS: BP 132/64; PULSE 81; RESP 17; TEMP 97.8; O2SAT 98
[2016-10-03] MEDS: traMADol HCL HCL 50 MG TABLET (ULTRAM) PO PRN (14:27)
[2016-10-03 16:32] VITALS: BP 136/70; PULSE 86; RESP 17; TEMP 98; O2SAT 98
[2016-10-03] MEDS ORDERED: ACET325T53 PO (17:42)
[2016-10-03] MEDS ORDERED: LACT1CAP57 PO (17:42)
[2016-10-03] MEDS ORDERED: LEVE500T53 PO (17:42)
[2016-10-03] MEDS ORDERED: TRAM50TA2 PO (17:42)
[2016-10-03] MEDS ORDERED: POTASSIUM CHLORIDE 10 MEQ in 0.45% NACL 1,000 ML IV SCH (20:00)
[2016-10-03 20:48] VITALS: BP 139/84; PULSE 89; RESP 18; TEMP 98.7; O2SAT 96
== END 2016-10-03 21:55 | DRG 963 ==
LOC: SED 18:14 → SMU 23:34
PROVIDERS: ADMIT Internal Medicine; ATTEND Internal Medicine
PROC: 30233N1 Transfusion of Nonautologous Red Blood Cells into Peripheral Vein, Percutaneous Approach (ICD-10-PCS; 2016-10-01)
PROC: 0DH63UZ Insertion of Feeding Device into Stomach, Percutaneous Approach (ICD-10-PCS; principal; 2016-10-02 08:00)
DX: S06.6X0A Traumatic subarachnoid hemorrhage without loss of consciousness, initial encounter (principal); J69.0 Pneumonitis due to inhalation of food and vomit; S27.0XXA Traumatic pneumothorax, initial encounter; N17.0 Acute kidney failure with tubular necrosis; E43 Unspecified severe protein-calorie malnutrition; Z68.1 Body mass index [BMI] 19.9 or less, adult; N18.4 Chronic kidney disease, stage 4 (severe); S22.42XA Multiple fractures of ribs, left side, initial encounter for closed fracture; S27.329A Contusion of lung, unspecified, initial encounter; N39.0 Urinary tract infection, site not specified; M25.572 Pain in left ankle and joints of left foot; D64.9 Anemia, unspecified; I25.10 Atherosclerotic heart disease of native coronary artery without angina pectoris; R29.6 Repeated falls; R62.7 Adult failure to thrive; E11.22 Type 2 diabetes mellitus with diabetic chronic kidney disease; I12.9 Hypertensive chronic kidney disease with stage 1 through stage 4 chronic kidney disease, or unspecified chronic kidney disease; M81.0 Age-related osteoporosis without current pathological fracture; K21.9 Gastro-esophageal reflux disease without esophagitis; G20 Parkinson's disease; E78.5 Hyperlipidemia, unspecified; F03.90 Unspecified dementia, unspecified severity, without behavioral disturbance, psychotic disturbance, mood disturbance, and anxiety; R13.19 Other dysphagia; W18.39XA Other fall on same level, initial encounter; Y93.89 Activity, other specified; Y92.098 Other place in other non-institutional residence as the place of occurrence of the external cause; Y99.8 Other external cause status; Z95.0 Presence of cardiac pacemaker; Z79.899 Other long term (current) drug therapy; Z88.6 Allergy status to analgesic agent; Z95.5 Presence of coronary angioplasty implant and graft; Z86.711 Personal history of pulmonary embolism; Z90.49 Acquired absence of other specified parts of digestive tract; Z90.79 Acquired absence of other genital organ(s); Z85.46 Personal history of malignant neoplasm of prostate
CPT/HCPCS: 36415; 43246; 70450-TC; 71010; 71250-TC; 72125-TC; 80048; 80053; 81000-TC; 82550-TC; 82607; 82746; 83605; 83690-TC; 83735-TC; 83880; 84484; 85007; 85025; 85027; 85610-TC; 85730-TC; 86886; 86900; 86901; 86920; 87040-TC; 87230-TC; 92610-GN; 93005; 94640; 94760; 96365; 96375; 97110-GP; 97530-GP; 99285; J0690; J0885; J1170; J1200; J1450; J1885; J1940; J1953; J2250; J2405; J2543; J3010; J3480; J7030; J7050; P9021

== ENCOUNTER 2016-10-20 02:26 | Inpatient (IN) | payer OTHER ==
[~2016-10-20] VITALS: Ht 177.8 cm; Wt 51.7 kg
[2016-10-20] VITALS (9 sets, daily range): BP systolic 98–127
[~2016-10-20 02:26] MED LIST changes: +ACET325T53 PO; +AMAN100C16 PO; +ASPI-1063 PO; -CARB1TAB10 PO; +DOXY-168 PO; -EZET10TA PO; -FENO145T PO; -FENO48TA2 PO; -HCTZ PO; -HYDR12.55 PO; +LACT1CAP57 PO; +LEVE500T53 PO; -LISI-219 PO; -LISI-600 PO; -LISI40TA4 PO; +METO-308 PO; -METO50TA7 PO; -ONDA4TAB5 PO; -POTA99TA14 PO; +ROSU10TA PO; -ROSU20TA PO; -ROSU40TA PO; +SUCR1TAB78 PO; -TOPXL100 PO; +TRAM50TA2 PO; -TRAM50TA92 PO
[2016-10-20] MEDS ORDERED: LIP20 GT (02:45)
[2016-10-20] MEDS ORDERED: BACTROBAN TP (02:46)
[2016-10-20] MEDS ORDERED: MULT-1184 GT (02:48)
[2016-10-20] MEDS ORDERED: HYDR-1189 PO ×2 (02:49→02:50)
[2016-10-20] MEDS ORDERED: SUCR1ORA2 GT (02:52)
[2016-10-20 03:38] LABS: HEMATOCRIT 40.5 % (36-54); HEMOGLOBIN 13.4 g/dL (14.0-18.0); MEAN CORPUSCULAR HEMOGLOBIN 30 pg (27-31); MEAN CORPUSCULAR HGB CONC 33 % (32-36); MEAN CORPUSCULAR VOLUME 89 fL (79.0-98.0); PLATELET COUNT (AUTO) 300 K/uL (130-430); RED BLOOD CELL COUNT(AUTO) 4.54 MIL/uL (4.2-6.2); RED CELL DISTRIBUTION WIDTH 13.6 % (9.0-15.0); WHITE BLOOD COUNT (AUTO) 15.5 K/uL (4.8-10.8)
[2016-10-20 03:39] LABS: BASOPHILS % (AUTO) 0.3 % (0.0-2.0); EOSINOPHILS % (AUTO) 0.1 % (0.0-4.0); LYMPHOCYTES # (AUTO) 0.5 K/uL (1.0-5.5); MONOCYTES # (AUTO) 0.5 K/uL (0.0-1.0); MONOCYTES % (AUTO) 3.4 % (1.7-9.3); NEUTROPHILS # (AUTO) 14.5 K/uL (1.8-7.7); NEUTROPHILS % (AUTO) 93.2 % (40.0-70.0)
[2016-10-20 03:48] LABS: INR 1.1 (0.80-1.20); PROTHROMBIN TIME 12.3 SECS (9.5-12.5)
[2016-10-20] MEDS ORDERED: PIPERACILLIN/TAZO 3.375 GM in NS 50 ML IV ONE (04:00)
[2016-10-20] MEDS ORDERED: ALBUTEROL SULFATE 0.083% 2.5 MG/3 ML VIAL.NEB INH ONE ×2 (04:00→05:45)
[2016-10-20 04:02] LABS: ANION GAP 2 (5-15); CALCIUM 9.2 mg/dL (8.4-11.0); CHLORIDE 96 mmol/L (98-107); CREATININE 1.53 mg/dL (0.55-1.30); GLUCOSE 192 mg/dL (70-99); POTASSIUM 3.9 mmol/L (3.5-5.1); SODIUM SERUM 135 mmol/L (136-145); UREA NITROGEN, BLOOD 43 mg/dL (8-21)
[2016-10-20 04:14] LABS: ALANINE AMINOTRANSFERASE 26 U/L (12-78); ALBUMIN 2.9 g/dL (3.4-4.8); ASPARTATE AMINOTRANSFERASE 29 U/L (10-37); TOTAL BILIRUBIN 0.8 mg/dL (0.0-1.0); TOTAL PROTEIN, SERUM 6.8 g/dL (6.4-8.3)
[2016-10-20 04:18] LABS: ALCOHOL, BLOOD < 3 mg/dL (<10)
[2016-10-20] MEDS ORDERED: PIPERACILLIN/TAZOBACTAM 3.375 GM/VIAL (ZOSYN) IV ONE (05:27)
[2016-10-20 05:45] LABS: BILIRUBIN,URINE NEGATIVE (NEGATIVE); BLOOD, URINE 3+ (NEGATIVE); CLARITY/URINE HAZY (CLEAR); COLOR,URINE YELLOW (YELLOW); GLUCOSE,URINE NEGATIVE (NEGATIVE); KETONES,URINE NEGATIVE (NEGATIVE); LEUKOCYTE ESTERASE ,URINE 2+ (NEGATIVE); NITRITE, URINE NEGATIVE (NEGATIVE); PROTEIN URINE 2+ (NEGATIVE)
[2016-10-20] MEDS ORDERED: ONDANSETRON HCL 4 MG/2 ML VIAL IVP ONE (05:45)
[2016-10-20 05:51] LABS: BACTERIA,URINE MODERATE /HPF (None Seen); RBC,URINE >100 /HPF (0-3)
[2016-10-20 06:06] LABS: BARBITURATE, URINE NEGATIVE (NEG <=200); BENZODIAZEPINE, URINE NEGATIVE (NEG <=150); CANNABINOID, URINE NEGATIVE (NEG <=50); COCAINE, URINE NEGATIVE (NEG <=150); METHAMPHETAMINES SCREEN,URINE NEGATIVE (NEG <=500); OPIATE, URINE POSITIVE (NEG <=100); PHENCYCLIDINE SCREEN,URINE NEGATIVE (NEG <=25); UR TRICYCLIC ANTIDEPRESSANTS NEGATIVE (NEG <=300); URINE AMPHETAMINE NEGATIVE (NEG <=500); URINE METHADONE NEGATIVE (NEG <=200); URINE OXYCODONE SCREEN NEGATIVE (NEG <=100); URINE PROPOXYPHENE SCREEN NEGATIVE (NEG <=300)
[2016-10-20] MEDS ORDERED: PANTOPRAZOLE SODIUM 40 MG/VIAL (PROTONIX) IVP ONE ×2 (06:15→12:45)
[2016-10-20] MEDS ORDERED: ASPIRIN 81 MG TAB.CHEW PO ONE (07:00)
[2016-10-20] MEDS ORDERED: NACL 0.9% 1,000 ML IV ONE (07:00)
[2016-10-20] MEDS ORDERED: ONDANSETRON HCL 4 MG/2 ML VIAL IVP PRN (12:15)
[2016-10-20] MEDS ORDERED: AZITHROMYCIN 500 MG in NS 250 ML IV SCH (12:15)
[2016-10-20] MEDS ORDERED: MORPHINE 2 MG/ML INJ. SYRINGE IVP PRN (12:15)
[2016-10-20] MEDS ORDERED: HYDROcodone/ACETAMIN 5-325 MG TAB (NORCO/ VICODIN) PO PRN ×2 (12:30)
[2016-10-20] MEDS: METOPROLOL SUCCINATE 50 MG TAB.SR.24H (TOPROL XL) PO SCH (12:30)
[2016-10-20] MEDS ORDERED: DEXTROSE 50% JECT 50 ML DISP.SYRIN IVP PRN (12:30)
[2016-10-20] MEDS ORDERED: MUPIROCIN 2% TOPICAL OINTMENT 22 GM TP SCH (12:30)
[2016-10-20] MEDS ORDERED: levETIRAcetam 500 MG TABLET PO ONE (12:45)
[2016-10-20] MEDS ORDERED: SUCRALFATE 1 GM/10 ML UDC GT ONE (12:45)
[2016-10-20] MEDS ORDERED: METOPROLOL SUCCINATE 50 MG TAB.SR.24H (TOPROL XL) PO ONE (13:15)
[2016-10-20] MEDS: NACL 0.9% 1,000 ML IV SCH ×2 (13:26→22:15)
[2016-10-20] MEDS: PIPERACILLIN/TAZO 2.25G/DEX-IS 50 ML IV SCH ×3 (13:35→23:37)
[2016-10-20] MEDS: SUCRALFATE 1 GM/10 ML UDC GT SCH ×2 (15:48→22:04)
[2016-10-20] MEDS: IPRATROPIUM/ALBUTEROL SULFATE 3 ML AMPUL.NEB INH SCH ×3 (16:07→23:25)
[2016-10-20] MEDS ORDERED: traMADol HCL HCL 50 MG TABLET (ULTRAM) PO SCH (18:00)
[2016-10-20] MEDS ORDERED: FUROSEMIDE 20 MG/2 ML VIAL IVP ONE (19:30)
[2016-10-20] MEDS ORDERED: levETIRAcetam 500 MG TABLET GT SCH (21:00)
[2016-10-20] MEDS ORDERED: levETIRAcetam 500 MG TABLET PO SCH (21:00)
[2016-10-20] MEDS ORDERED: AMANTADINE HCL 100 MG CAP PO SCH (21:00)
[2016-10-20] MEDS: AMANTADINE HCL 100 MG CAP GT SCH (22:04)
[2016-10-20] MEDS: PANTOPRAZOLE SODIUM 40 MG/VIAL (PROTONIX) IVP SCH (22:04)
[2016-10-20] MEDS: ATORVASTATIN 20 MG TABLET GT SCH (22:04)
[2016-10-20] MEDS: D5/0.45 NS 1,000 ML IV SCH (23:37)
[2016-10-21 01:10] VITALS: BP_SYST 114
[2016-10-21] MEDS: IPRATROPIUM/ALBUTEROL SULFATE 3 ML AMPUL.NEB INH SCH ×6 (03:48→22:50)
[2016-10-21] MEDS: PIPERACILLIN/TAZO 2.25G/DEX-IS 50 ML IV SCH ×4 (05:02→23:01)
[2016-10-21 05:07] VITALS: BP_SYST 130
[2016-10-21 07:52] LABS: HEMATOCRIT 28.8 % (36-54); HEMOGLOBIN 9.5 g/dL (14.0-18.0); MEAN CORPUSCULAR HEMOGLOBIN 30 pg (27-31); MEAN CORPUSCULAR HGB CONC 33 % (32-36); MEAN CORPUSCULAR VOLUME 91 fL (79.0-98.0); PLATELET COUNT (AUTO) 164 K/uL (130-430); RED BLOOD CELL COUNT(AUTO) 3.18 MIL/uL (4.2-6.2); RED CELL DISTRIBUTION WIDTH 13.6 % (9.0-15.0)
[2016-10-21 08:00] VITALS: BP_SYST 101
[2016-10-21 08:11] LABS: WHITE BLOOD COUNT (AUTO) 8.4 K/uL (4.8-10.8)
[2016-10-21 08:26] LABS: ALANINE AMINOTRANSFERASE 22 U/L (12-78); ALBUMIN 1.9 g/dL (3.4-4.8); ANION GAP 4 (5-15); ASPARTATE AMINOTRANSFERASE 34 U/L (10-37); CALCIUM 8.3 mg/dL (8.4-11.0); CHLORIDE 102 mmol/L (98-107); CREATININE 2.02 mg/dL (0.55-1.30); GLUCOSE 158 mg/dL (70-99); POTASSIUM 3.6 mmol/L (3.5-5.1); SODIUM SERUM 137 mmol/L (136-145); TOTAL BILIRUBIN 0.7 mg/dL (0.0-1.0); TOTAL PROTEIN, SERUM 5.2 g/dL (6.4-8.3); UREA NITROGEN, BLOOD 60 mg/dL (8-21)
[2016-10-21] MEDS: SUCRALFATE 1 GM/10 ML UDC GT SCH ×3 (09:00→21:46)
[2016-10-21] MEDS: METOPROLOL SUCCINATE 50 MG TAB.SR.24H (TOPROL XL) PO SCH (09:00)
[2016-10-21] MEDS: AMANTADINE HCL 100 MG CAP GT SCH ×2 (09:00→21:46)
[2016-10-21] MEDS: MULTIVITS,CA,MINERALS/IRON/FA 1 TABLET GT SCH (09:00)
[2016-10-21 09:54] LABS: BAND % (MANUAL) 48 % (0-6)
[2016-10-21 09:55] LABS: ATYPICAL LYMPHOCYTES % 0 % (0-0); BASOPHILS % (MANUAL) 0 % (0-2); EOSINOPHILS % (MANUAL) 0 % (0-7); LYMPHOCYTES % (MANUAL) 10 % (20-46); MONOCYTES % (MANUAL) 5 % (0-11)
[2016-10-21] MEDS ORDERED: FLUCONAZOLE 100 mg/ NS 50 ML IV SCH (10:00)
[2016-10-21] MEDS: PANTOPRAZOLE SODIUM 40 MG/VIAL (PROTONIX) IVP SCH ×2 (10:56→21:46)
[2016-10-21] MEDS: D5/0.45 NS 1,000 ML IV SCH ×2 (11:00→19:45)
[2016-10-21 11:46] VITALS: BP_SYST 110
[2016-10-21] MEDS: LEVOFLOXACIN 250 MG/D5W 50 ML IV SCH (12:33)
[2016-10-21] MEDS: ACETAMINOPHEN 650 MG SUPP.RECT RC PRN (12:46)
[2016-10-21 16:15] VITALS: BP_SYST 111
[2016-10-21 19:45] VITALS: BP_SYST 105
[2016-10-21] MEDS: ATORVASTATIN 20 MG TABLET GT SCH (21:46)
[2016-10-22] VITALS (11 sets, daily range): BP systolic 105–164
[2016-10-22] MEDS: D5/0.45 NS 1,000 ML IV SCH ×2 (01:31→05:15)
[2016-10-22] MEDS: IPRATROPIUM/ALBUTEROL SULFATE 3 ML AMPUL.NEB INH SCH ×5 (04:09→23:23)
[2016-10-22] MEDS: PIPERACILLIN/TAZO 2.25G/DEX-IS 50 ML IV SCH ×3 (06:07→18:28)
[2016-10-22] MEDS: INSULIN REGULAR, HUMAN 100 UNITS/ML, 10 ML VIAL (novoLIN R) SUBCUT PRN ×2 (06:08→21:25)
[2016-10-22 07:35] LABS: BASOPHILS % (AUTO) 0.1 % (0.0-2.0); EOSINOPHILS % (AUTO) 0.1 % (0.0-4.0); HEMATOCRIT 26.9 % (36-54); HEMOGLOBIN 8.9 g/dL (14.0-18.0); LYMPHOCYTES # (AUTO) 0.2 K/uL (1.0-5.5); LYMPHOCYTES % (AUTO) 2.9 % (20.5-51.5); MEAN CORPUSCULAR HEMOGLOBIN 30 pg (27-31); MEAN CORPUSCULAR HGB CONC 33 % (32-36); MEAN CORPUSCULAR VOLUME 90 fL (79.0-98.0); MONOCYTES # (AUTO) 0.3 K/uL (0.0-1.0); MONOCYTES % (AUTO) 3.9 % (1.7-9.3); NEUTROPHILS # (AUTO) 7.8 K/uL (1.8-7.7); PLATELET COUNT (AUTO) 166 K/uL (130-430); RED BLOOD CELL COUNT(AUTO) 2.99 MIL/uL (4.2-6.2); RED CELL DISTRIBUTION WIDTH 13.5 % (9.0-15.0); WHITE BLOOD COUNT (AUTO) 8.3 K/uL (4.8-10.8)
[2016-10-22 07:48] LABS: ANION GAP 4 (5-15); CALCIUM 8.4 mg/dL (8.4-11.0); CHLORIDE 105 mmol/L (98-107); CREATININE 1.78 mg/dL (0.55-1.30); GLUCOSE 157 mg/dL (70-99); POTASSIUM 3.2 mmol/L (3.5-5.1); SODIUM SERUM 140 mmol/L (136-145); UREA NITROGEN, BLOOD 49 mg/dL (8-21)
[2016-10-22] MEDS: PANTOPRAZOLE SODIUM 40 MG/VIAL (PROTONIX) IVP SCH ×2 (08:49→21:25)
[2016-10-22] MEDS: MULTIVITS,CA,MINERALS/IRON/FA 1 TABLET GT SCH (09:00)
[2016-10-22] MEDS: METOPROLOL SUCCINATE 50 MG TAB.SR.24H (TOPROL XL) PO SCH (09:00)
[2016-10-22] MEDS: SUCRALFATE 1 GM/10 ML UDC GT SCH ×2 (09:00→21:24)
[2016-10-22] MEDS: AMANTADINE HCL 100 MG CAP GT SCH ×2 (09:00→21:24)
[2016-10-22] MEDS: LEVOFLOXACIN 250 MG/D5W 50 ML IV SCH (11:29)
[2016-10-22] MEDS ORDERED: MIDAZOLAM HCL 5 MG/5 ML VIAL ONE ×2 (12:53→12:54)
[2016-10-22] MEDS ORDERED: MEPERIDINE HCL/PF 50 MG/ML AMP ONE ×2 (12:54→12:55)
[2016-10-22] MEDS ORDERED: POTASSIUM CHLORIDE 40 MEQ in NS 250 ML IV ONE (13:45)
[2016-10-22] MEDS ORDERED: FUROSEMIDE 20 MG/2 ML VIAL IVP ONE (18:00)
[2016-10-22 18:02] LABS: ABG TOTAL HEMOGLOBIN 10.5 G/dL (12.0-18.0); BLOOD GAS HHB 3.6 % (0.0-6.0); BLOOD GAS PH 7.491 (7.350-7.450); BLOOD O2Hb% 95.9 % (94.0-97.0)
[2016-10-22] MEDS: KCL 20 mEq in D5/0.45NS 1000mL 1,000 ML IV SCH (18:32)
[2016-10-22] MEDS: ATORVASTATIN 20 MG TABLET GT SCH (21:24)
[2016-10-23] VITALS (16 sets, daily range): BP systolic 107–155
[2016-10-23] MEDS: PIPERACILLIN/TAZO 2.25G/DEX-IS 50 ML IV SCH ×5 (00:04→23:46)
[2016-10-23] MEDS: traMADol HCL HCL 50 MG TABLET (ULTRAM) GT PRN (00:42)
[2016-10-23] MEDS: ACETAMINOPHEN 650 MG SUPP.RECT RC PRN ×2 (00:42→21:40)
[2016-10-23] MEDS: IPRATROPIUM/ALBUTEROL SULFATE 3 ML AMPUL.NEB INH SCH ×6 (04:09→23:10)
[2016-10-23 06:23] LABS: EOSINOPHILS % (AUTO) 0.1 % (0.0-4.0); HEMATOCRIT 31.3 % (36-54); HEMOGLOBIN 10.3 g/dL (14.0-18.0); LYMPHOCYTES # (AUTO) 0.4 K/uL (1.0-5.5); LYMPHOCYTES % (AUTO) 2.7 % (20.5-51.5); MEAN CORPUSCULAR HEMOGLOBIN 30 pg (27-31); MEAN CORPUSCULAR HGB CONC 33 % (32-36); MEAN CORPUSCULAR VOLUME 90 fL (79.0-98.0); MONOCYTES # (AUTO) 0.4 K/uL (0.0-1.0); MONOCYTES % (AUTO) 3.2 % (1.7-9.3); NEUTROPHILS # (AUTO) 12.4 K/uL (1.8-7.7); PLATELET COUNT (AUTO) 201 K/uL (130-430); RED BLOOD CELL COUNT(AUTO) 3.46 MIL/uL (4.2-6.2); RED CELL DISTRIBUTION WIDTH 13.3 % (9.0-15.0); WHITE BLOOD COUNT (AUTO) 13.2 K/uL (4.8-10.8)
[2016-10-23] MEDS: INSULIN REGULAR, HUMAN 100 UNITS/ML, 10 ML VIAL (novoLIN R) SUBCUT PRN ×2 (06:38→12:16)
[2016-10-23 06:43] LABS: ANION GAP 6 (5-15); CALCIUM 8.8 mg/dL (8.4-11.0); CHLORIDE 104 mmol/L (98-107); CREATININE 1.84 mg/dL (0.55-1.30); GLUCOSE 191 mg/dL (70-99); SODIUM SERUM 140 mmol/L (136-145); UREA NITROGEN, BLOOD 45 mg/dL (8-21)
[2016-10-23] MEDS ORDERED: SODIUM CL 3% FOR INHALATION 15 ML VIAL.NEB INH ONE (08:00)
[2016-10-23] MEDS: KCL 20 mEq in D5/0.45NS 1000mL 1,000 ML IV SCH ×2 (08:12→18:03)
[2016-10-23] MEDS: PANTOPRAZOLE SODIUM 40 MG/VIAL (PROTONIX) IVP SCH ×2 (08:13→21:16)
[2016-10-23] MEDS: METOPROLOL SUCCINATE 50 MG TAB.SR.24H (TOPROL XL) PO SCH (08:13)
[2016-10-23] MEDS: MULTIVITS,CA,MINERALS/IRON/FA 1 TABLET GT SCH (08:13)
[2016-10-23] MEDS: AMANTADINE HCL 100 MG CAP GT SCH ×2 (08:13→21:16)
[2016-10-23] MEDS: SUCRALFATE 1 GM/10 ML UDC GT SCH ×3 (08:13→21:16)
[2016-10-23] MEDS ORDERED: FUROSEMIDE 40 MG/4 ML VIAL IVP ONE (08:45)
[2016-10-23] MEDS: POTASSIUM CHLORIDE 40 MEQ in NS 250 ML IV SCH ×2 (09:49→13:51)
[2016-10-23] MEDS: LEVOFLOXACIN 250 MG/D5W 50 ML IV SCH (11:58)
[2016-10-23 20:30] LABS: ANION GAP 3 (5-15); CALCIUM 8.4 mg/dL (8.4-11.0); CHLORIDE 109 mmol/L (98-107); CREATININE 1.78 mg/dL (0.55-1.30); GLUCOSE 140 mg/dL (70-99); POTASSIUM 3.2 mmol/L (3.5-5.1); SODIUM SERUM 145 mmol/L (136-145); UREA NITROGEN, BLOOD 43 mg/dL (8-21)
[2016-10-23] MEDS: ATORVASTATIN 20 MG TABLET GT SCH (21:16)
[2016-10-24] VITALS: BP_SYST 141
[2016-10-24] MEDS: IPRATROPIUM/ALBUTEROL SULFATE 3 ML AMPUL.NEB INH SCH ×5 (02:26→23:39)
[2016-10-24 03:03] VITALS: BP_SYST 132
[2016-10-24] MEDS: PIPERACILLIN/TAZO 2.25G/DEX-IS 50 ML IV SCH ×4 (05:31→23:33)
[2016-10-24 06:45] LABS: EOSINOPHILS % (AUTO) 0.2 % (0.0-4.0); HEMATOCRIT 29.4 % (36-54); HEMOGLOBIN 9.5 g/dL (14.0-18.0); LYMPHOCYTES # (AUTO) 0.3 K/uL (1.0-5.5); LYMPHOCYTES % (AUTO) 2.3 % (20.5-51.5); MEAN CORPUSCULAR HEMOGLOBIN 29 pg (27-31); MEAN CORPUSCULAR HGB CONC 33 % (32-36); MEAN CORPUSCULAR VOLUME 90 fL (79.0-98.0); MONOCYTES # (AUTO) 0.6 K/uL (0.0-1.0); MONOCYTES % (AUTO) 4.6 % (1.7-9.3); NEUTROPHILS # (AUTO) 11.1 K/uL (1.8-7.7); NEUTROPHILS % (AUTO) 92.9 % (40.0-70.0); PLATELET COUNT (AUTO) 187 K/uL (130-430); RED BLOOD CELL COUNT(AUTO) 3.26 MIL/uL (4.2-6.2); RED CELL DISTRIBUTION WIDTH 13.8 % (9.0-15.0)
[2016-10-24 06:59] LABS: ALANINE AMINOTRANSFERASE 26 U/L (12-78); ALBUMIN 1.9 g/dL (3.4-4.8); ANION GAP 4 (5-15); ASPARTATE AMINOTRANSFERASE 34 U/L (10-37); CALCIUM 8.4 mg/dL (8.4-11.0); CHLORIDE 107 mmol/L (98-107); CREATININE 1.72 mg/dL (0.55-1.30); GLUCOSE 174 mg/dL (70-99); SODIUM SERUM 145 mmol/L (136-145); TOTAL BILIRUBIN 0.7 mg/dL (0.0-1.0); TOTAL PROTEIN, SERUM 5.7 g/dL (6.4-8.3); UREA NITROGEN, BLOOD 42 mg/dL (8-21)
[2016-10-24 07:41] LABS: POTASSIUM 2.9 mmol/L (3.5-5.1)
[2016-10-24 08:14] VITALS: BP_SYST 118
[2016-10-24] MEDS ORDERED: LACTULOSE 20 GM/30 ML UDC PO PRN (08:30)
[2016-10-24] MEDS ORDERED: BISACODYL 10 MG/SUPPOSITORY RC ONE (08:30)
[2016-10-24] MEDS ORDERED: POTASSIUM CHLORIDE 20 MEQ/PKT PACKET GT ONE (08:30)
[2016-10-24] MEDS: MULTIVITS,CA,MINERALS/IRON/FA 1 TABLET GT SCH (08:51)
[2016-10-24] MEDS: AMANTADINE HCL 100 MG CAP GT SCH ×2 (08:51→21:42)
[2016-10-24] MEDS: SUCRALFATE 1 GM/10 ML UDC GT SCH ×3 (08:52→21:42)
[2016-10-24] MEDS: METOPROLOL SUCCINATE 50 MG TAB.SR.24H (TOPROL XL) PO SCH (08:52)
[2016-10-24] MEDS: PANTOPRAZOLE SODIUM 40 MG/VIAL (PROTONIX) IVP SCH ×2 (08:52→22:23)
[2016-10-24] MEDS: FUROSEMIDE 40 MG/4 ML VIAL IVP SCH (08:52)
[2016-10-24] MEDS: POTASSIUM CHLORIDE 40 MEQ in NS 250 ML IV SCH ×2 (09:45→13:32)
[2016-10-24] MEDS: traMADol HCL HCL 50 MG TABLET (ULTRAM) GT PRN (11:09)
[2016-10-24 12:15] VITALS: BP_SYST 127
[2016-10-24 16:43] VITALS: BP_SYST 124
[2016-10-24 19:30] VITALS: BP_SYST 133
[2016-10-24 20:29] LABS: CALCIUM 8.8 mg/dL (8.4-11.0); CHLORIDE 112 mmol/L (98-107); CREATININE 1.81 mg/dL (0.55-1.30); GLUCOSE 204 mg/dL (70-99); POTASSIUM 4.2 mmol/L (3.5-5.1); SODIUM SERUM 149 mmol/L (136-145); UREA NITROGEN, BLOOD 43 mg/dL (8-21)
[2016-10-24 20:32] LABS: ANION GAP < 3 (5-15)
[2016-10-24] MEDS: ATORVASTATIN 20 MG TABLET GT SCH (21:42)
[2016-10-24] MEDS: LACTOBACILLUS RHAMNOSUS GG 1 CAP CAPSULE PO SCH (21:42)
[2016-10-24] MEDS: D5W 1,000 ML IV SCH (23:33)
[2016-10-25] VITALS: BP_SYST 109
[2016-10-25 04:00] VITALS: BP_SYST 135
[2016-10-25] MEDS: IPRATROPIUM/ALBUTEROL SULFATE 3 ML AMPUL.NEB INH SCH ×6 (04:09→23:28)
[2016-10-25] MEDS: PIPERACILLIN/TAZO 2.25G/DEX-IS 50 ML IV SCH ×3 (05:24→18:04)
[2016-10-25 07:16] LABS: EOSINOPHILS % (AUTO) 0.2 % (0.0-4.0); HEMATOCRIT 30.6 % (36-54); HEMOGLOBIN 9.9 g/dL (14.0-18.0); LYMPHOCYTES # (AUTO) 0.3 K/uL (1.0-5.5); LYMPHOCYTES % (AUTO) 3.4 % (20.5-51.5); MEAN CORPUSCULAR HEMOGLOBIN 29 pg (27-31); MEAN CORPUSCULAR HGB CONC 32 % (32-36); MEAN CORPUSCULAR VOLUME 91 fL (79.0-98.0); MONOCYTES # (AUTO) 0.3 K/uL (0.0-1.0); MONOCYTES % (AUTO) 3.2 % (1.7-9.3); NEUTROPHILS % (AUTO) 93.2 % (40.0-70.0); PLATELET COUNT (AUTO) 195 K/uL (130-430); RED BLOOD CELL COUNT(AUTO) 3.37 MIL/uL (4.2-6.2); RED CELL DISTRIBUTION WIDTH 13.8 % (9.0-15.0); WHITE BLOOD COUNT (AUTO) 9.6 K/uL (4.8-10.8)
[2016-10-25 07:17] LABS: ANION GAP 6 (5-15); CALCIUM 8.7 mg/dL (8.4-11.0); CHLORIDE 108 mmol/L (98-107); CREATININE 1.79 mg/dL (0.55-1.30); GLUCOSE 219 mg/dL (70-99); POTASSIUM 3.5 mmol/L (3.5-5.1); SODIUM SERUM 149 mmol/L (136-145); UREA NITROGEN, BLOOD 39 mg/dL (8-21)
[2016-10-25 08:00] VITALS: BP_SYST 147
[2016-10-25] MEDS: AMANTADINE HCL 100 MG CAP GT SCH ×2 (09:54→21:24)
[2016-10-25] MEDS: METOPROLOL SUCCINATE 50 MG TAB.SR.24H (TOPROL XL) PO SCH (09:54)
[2016-10-25] MEDS: PANTOPRAZOLE SODIUM 40 MG/VIAL (PROTONIX) IVP SCH ×2 (09:54→21:24)
[2016-10-25] MEDS: LACTOBACILLUS RHAMNOSUS GG 1 CAP CAPSULE PO SCH ×2 (09:54→21:24)
[2016-10-25] MEDS: MULTIVITS,CA,MINERALS/IRON/FA 1 TABLET GT SCH (09:54)
[2016-10-25] MEDS: SUCRALFATE 1 GM/10 ML UDC GT SCH ×3 (09:54→21:24)
[2016-10-25] MEDS: FUROSEMIDE 40 MG/4 ML VIAL IVP SCH (09:55)
[2016-10-25] MEDS: POTASSIUM CHLORIDE 40 MEQ in NS 250 ML IV SCH (09:56)
[2016-10-25 12:10] VITALS: BP_SYST 120
[2016-10-25] MEDS: D5W 1,000 ML IV SCH ×2 (12:27→21:24)
[2016-10-25] MEDS: INSULIN REGULAR, HUMAN 100 UNITS/ML, 10 ML VIAL (novoLIN R) SUBCUT PRN (12:27)
[2016-10-25 16:19] VITALS: BP_SYST 134
[2016-10-25 19:40] VITALS: BP_SYST 137
[2016-10-25] MEDS: ATORVASTATIN 20 MG TABLET GT SCH (21:24)
[2016-10-26] MEDS: PIPERACILLIN/TAZO 2.25G/DEX-IS 50 ML IV SCH ×2 (00:09→05:05)
[2016-10-26 00:41] VITALS: BP_SYST 135
[2016-10-26] MEDS: IPRATROPIUM/ALBUTEROL SULFATE 3 ML AMPUL.NEB INH SCH ×4 (03:52→15:33)
[2016-10-26 04:13] VITALS: BP_SYST 140
[2016-10-26] MEDS: INSULIN REGULAR, HUMAN 100 UNITS/ML, 10 ML VIAL (novoLIN R) SUBCUT PRN (05:50)
[2016-10-26 06:50] LABS: BASOPHILS % (AUTO) 0.1 % (0.0-2.0); EOSINOPHILS # (AUTO) 0.1 K/uL (0.0-0.4); EOSINOPHILS % (AUTO) 1.1 % (0.0-4.0); HEMATOCRIT 31.2 % (36-54); HEMOGLOBIN 10.1 g/dL (14.0-18.0); LYMPHOCYTES # (AUTO) 0.4 K/uL (1.0-5.5); LYMPHOCYTES % (AUTO) 3.1 % (20.5-51.5); MEAN CORPUSCULAR HEMOGLOBIN 29 pg (27-31); MEAN CORPUSCULAR HGB CONC 33 % (32-36); MEAN CORPUSCULAR VOLUME 90 fL (79.0-98.0); MONOCYTES # (AUTO) 0.2 K/uL (0.0-1.0); MONOCYTES % (AUTO) 1.5 % (1.7-9.3); NEUTROPHILS # (AUTO) 10.7 K/uL (1.8-7.7); NEUTROPHILS % (AUTO) 94.2 % (40.0-70.0); PLATELET COUNT (AUTO) 194 K/uL (130-430); RED BLOOD CELL COUNT(AUTO) 3.45 MIL/uL (4.2-6.2); RED CELL DISTRIBUTION WIDTH 13.4 % (9.0-15.0); WHITE BLOOD COUNT (AUTO) 11.4 K/uL (4.8-10.8)
[2016-10-26 07:04] LABS: ANION GAP 4 (5-15); CALCIUM 8.7 mg/dL (8.4-11.0); CHLORIDE 105 mmol/L (98-107); CREATININE 1.87 mg/dL (0.55-1.30); GLUCOSE 250 mg/dL (70-99); POTASSIUM 3.1 mmol/L (3.5-5.1); SODIUM SERUM 144 mmol/L (136-145); UREA NITROGEN, BLOOD 46 mg/dL (8-21)
[2016-10-26 07:46] VITALS: BP_SYST 119
[2016-10-26] MEDS: MULTIVITS,CA,MINERALS/IRON/FA 1 TABLET GT SCH (09:03)
[2016-10-26] MEDS: AMANTADINE HCL 100 MG CAP GT SCH (09:03)
[2016-10-26] MEDS: PANTOPRAZOLE SODIUM 40 MG/VIAL (PROTONIX) IVP SCH (09:03)
[2016-10-26] MEDS: FUROSEMIDE 40 MG/4 ML VIAL IVP SCH (09:03)
[2016-10-26] MEDS: LACTOBACILLUS RHAMNOSUS GG 1 CAP CAPSULE PO SCH (09:04)
[2016-10-26] MEDS: SUCRALFATE 1 GM/10 ML UDC GT SCH (09:07)
[2016-10-26] MEDS: METOPROLOL SUCCINATE 50 MG TAB.SR.24H (TOPROL XL) PO SCH (09:07)
[2016-10-26] MEDS: POTASSIUM CHLORIDE 40 MEQ in NS 250 ML IV SCH (09:10)
[2016-10-26] MEDS ORDERED: POTASSIUM CHLORIDE 20 MEQ/PKT PACKET PO ONE (11:00)
[2016-10-26 12:19] VITALS: BP_SYST 106
[2016-10-26 13:44] VITALS: BP_SYST 141
[2016-10-26] MEDS ORDERED: AMOXICILLIN/CLAVULANATE POTASSIUM 250 MG/5 ML, 75 ML BTL GT SCH (14:00)
[2016-10-26] MEDS ORDERED: PANTOPRAZOLE GRANULES PACKET 40 MG GT SCH (21:00)
[2016-10-27] MEDS ORDERED: POTASSIUM CHLORIDE 20 MEQ/PKT PACKET PO SCH (09:00)
[2016-10-27] MEDS ORDERED: FUROSEMIDE 40 MG TABLET GT SCH (09:00)
== END 2016-10-26 14:15 | disposition hospice, inpatient (51) | DRG 871 ==
LOC: SED 02:26 → STU 07:44 → SIC 10-22 17:12 → STU 10-23 15:19
PROVIDERS: ADMIT Internal Medicine; ATTEND Internal Medicine
DX: A41.9 Sepsis, unspecified organism (principal); J69.0 Pneumonitis due to inhalation of food and vomit; J96.01 Acute respiratory failure with hypoxia; N39.0 Urinary tract infection, site not specified; I13.0 Hypertensive heart and chronic kidney disease with heart failure and stage 1 through stage 4 chronic kidney disease, or unspecified chronic kidney disease; R64 Cachexia; K92.2 Gastrointestinal hemorrhage, unspecified; I50.30 Unspecified diastolic (congestive) heart failure; E87.0 Hyperosmolality and hypernatremia; E87.2 Acidosis; N18.3 Chronic kidney disease, stage 3 (moderate); D64.9 Anemia, unspecified; E11.22 Type 2 diabetes mellitus with diabetic chronic kidney disease; Z66 Do not resuscitate; F02.80 Dementia in other diseases classified elsewhere, unspecified severity, without behavioral disturbance, psychotic disturbance, mood disturbance, and anxiety; G20 Parkinson's disease; G40.909 Epilepsy, unspecified, not intractable, without status epilepticus; I25.10 Atherosclerotic heart disease of native coronary artery without angina pectoris; R13.10 Dysphagia, unspecified; N40.0 Benign prostatic hyperplasia without lower urinary tract symptoms; E78.00 Pure hypercholesterolemia, unspecified; R62.7 Adult failure to thrive; R29.6 Repeated falls; Z79.02 Long term (current) use of antithrombotics/antiplatelets; Z79.82 Long term (current) use of aspirin; Z88.6 Allergy status to analgesic agent; Z93.1 Gastrostomy status; Z79.899 Other long term (current) drug therapy; Z95.5 Presence of coronary angioplasty implant and graft; Z95.0 Presence of cardiac pacemaker; Z87.81 Personal history of (healed) traumatic fracture; Z85.46 Personal history of malignant neoplasm of prostate; E87.6 Hypokalemia; Z74.01 Bed confinement status; Z53.9 Procedure and treatment not carried out, unspecified reason; Z85.828 Personal history of other malignant neoplasm of skin
CPT/HCPCS: 36415; 36600; 71010; 74000-TC; 80048; 80053; 80307; 81000-TC; 82140-TC; 82803-TC; 82962; 83036; 83605; 83880; 84439; 84484; 85007; 85025; 85027; 85610-TC; 86886; 86900; 86901; 87040-TC; 87081; 87086; 87449; 92610-GN; 93005; 93306; 94640; 94760; 96361; 96365; 96375; 99285; C9113; G0482; J0456; J1450; J1940; J1956; J2175; J2250; J2405; J2543; J3480; J7030; J7050; J7060; J7131